=== PATIENT | male | born 1995 | race Caucasian/White ===

== ENCOUNTER 2018-11-19 02:37 | Emergency (ER) | payer OTHER, SELFPAY ==
[2018-11-19 02:45] VITALS: BP 145/87; PULSE 68; RESP 16; TEMP 36.4; O2SAT 96
--- NOTE | 2018-11-19 03:09 | ED_ITS ---
HPI - Headache General Chief Complaint: Headache Stated Complaint: not sleeping, hallucinating 1 week Time Seen by Provider: 11/19/18 02:45 Source: patient and family () Mode of arrival: ambulatory Limitations: no limitations History of Present Illness HPI Narrative: Patient is a 23-year-old male here with his for evaluation of headache and insomnia an auditory hallucinations. Appears that the symptoms have been going on for the past several days/week. Has been seen in 2 different emergency department per their report for similar symptoms. Has a follow-up artery scheduled with the mental health department [place] the [employer] but this is not for another week. He has seen his medical numerical control operator regarding his symptoms. He is currently on Celexa and Seroquel. He also has a prescription for trazodone as needed Ambien as needed. Patient states the am in does not help his symptoms. He reports that he had similar symptoms several months ago when he went several days without sleeping but those seem to have resolved. He states that his symptoms are that he is having a headache. He states he is hearing voices. He describes it as ?chatter ?no suicidal ideation. No homicidal ideation. Does not seem that the voices are saying anything specific however does state that he occasionally hears things about his father but does not expand on this. Two days ago he had the Seroquel increased to 50 mg by mouth. He states that he feels like he is hearing voices because he cannot sleep. Related Data Home Medications Medication Instructions Recorded Confirmed citalopram [Celexa] 40 mg PO DAILY 11/19/18 11/19/18 quetiapine 150 PO 11/19/18 trazodone 11/19/18 zolpidem [Ambien] mg PO BEDTIME PRN 11/19/18 Previous Rx's Medication Instructions Recorded lorazepam [Ativan] 1 mg PO BID-TID PRN #14 tab 11/19/18 Allergies Allergy/AdvReac Type Severity Reaction Status Date / Time No Known Drug Allergies Allergy Verified 11/19/18 03:01 Review of Systems Constitutional Denies fever(s), Reports headache(s) and Denies weakness ENT Ears, Nose, Mouth, and Throat: Reports headache(s) and Denies disequilibrium Cardiovascular Denies chest pain, Denies syncope and Denies dyspnea Respiratory Denies cough and Denies dyspnea Gastrointestinal Gastrointestinal: Denies abdominal pain, Denies nausea and Denies vomiting Musculoskeletal Denies myalgias and Denies arthralgias Integumentary/Breasts Denies lesions and Denies rash Neurologic Reports behavioral changes, Denies burning sensations, Denies confusion, Denies syncope, Reports headache(s), Denies tremor(s), Denies disequilibrium and Denies weakness Psychiatric Reports abnormal sleep pattern, Reports anxiety, Reports behavioral changes, Denies confusion, Reports auditory hallucinations, Denies paranoia, Denies visual hallucinations, Reports hallucinations, Denies tactile hallucinations, Denies homicidal ideation and Denies suicidal ideation Hematologic/Lymphatic Denies easy bleeding and Denies easy bruising [facility] Medical History Patient denies medical problems (Acute) Social History Smoking Status: Never smoker Social History Smoking Status: Never smoker Exam Initial Vital Signs Initial Vital Signs: Vital Signs Temperature 97.6 F 11/19/18 02:45 Pulse Rate 68 11/19/18 02:45 Respiratory Rate 16 11/19/18 02:45 Blood Pressure 145/87 H 11/19/18 02:45 Pulse Oximetry 96 11/19/18 02:45 Const General: cooperative, comfortable, well developed, well groomed, No acute dis tress and No in distress Orientation: alert, awake and oriented x3 Resp Effort & Inspection: normal respiratory effort Cardio Rate: regular rate Skin Lesions: no lesions Rashes: no rashes Neuro General: alert, awake and oriented x3 Speech: speech normal Motor: muscle tone normal throughout Sensory Exam: no sensory deficits noted Extrem General: normal to inspection and capillary refill normal Psych Appearance: grossly normal and well kempt Speech and Movement: restless Mood: anxious mood, not manic, not paranoid, No angry and No irritable mood Affect: indifferent Attitude: cooperative Thought Process: normal Thought Content: hallucinations auditory and suicidality Course Orders Ordered: Discontinued Medications Diphenhydramine HCl (Benadryl) 25 mg IV NOW ONE Stop: 11/19/18 03:10 Last Admin: 11/19/18 03:22 Dose: 25 mg Sodium Chloride (Normal Saline 0.9%) 1,000 mls @ 1,000 mls/hr IV BOLUS ONE Stop: 11/19/18 04:08 Last Infusion: 11/19/18 04:25 Dose: 0 mls/hr Admin: 11/19/18 03:22 Dose: 1,000 mls/hr Lorazepam (Ativan) 1 mg IV NOW ONE Stop: 11/19/18 03:52 Metoclopramide HCl (Reglan) 10 mg IV NOW ONE Stop: 11/19/18 03:10 Last Admin: 11/19/18 03:22 Dose: 10 mg Vital Signs - 8 hr 11/19/18 02:45 11/19/18 04:03 11/19/18 04:45 Temperature 97.6 F Pulse Rate 68 61 64 Respiratory Rate 16 18 Blood Pressure 145/87 H 104/65 Blood Pressure [Right Arm] 93/53 L Pulse Oximetry 96 95 98 MDM - Headache MDM Narrative Medical decision making narrative: Patient has no signs of toxic ingestions. His headache did seem to improve after the medications. He does seem much calmer any states that the voices are much less after the Ativan. Patient does not meet criteria for involuntary admission. I feel that he would not meet criteria for voluntary admission as well given the stability of his symptoms and the lack of suicidality or homicidality. Patient states that the Ambien does not work for him. I informed him that he should stop taking it. He seems pretty in different about the trazodone. Will send home with a short prescription for Ativan as that seemed to help his symptoms quite a bit here in the ER. Informed the patient that tomorrow he needs to contact his medical department and also the mental health [place] about moving his appointment up. I feel that the headaches were secondary to his insomnia and hallucinations. Low suspicion for meningitis or inter cranial haemorrhage. Will hold on further workup for now. Patient's is with him to take him home. We discussed return precautions and follow-up instructions. He expressed understanding and agreement plan. Patient has a GCS of 15 is alert and oriented x3 my opinion has capacity make decision Discharge Plan Departure Patient Disposition: Home Clinical Impression: Headache Qualifiers: Headache type: unspecified Headache chronicity pattern: unspecified pattern Intractability: not intractable Qualified Code(s): R51 - Headache Insomnia Qualifiers: Insomnia type: unspecified Qualified Code(s): G47.00 - Insomnia, unspecified Discharge Date/Time: 11/19/18 04:46 Interventions: ED Discharge Assessment Last Done: 11/19/18 04:45 Instructions: Insomnia (Alternative Therapy), Insomnia Activity Restrictions/Additional Instructions: I recommend you continue all of your medication except for the Ambien like we discussed. Tomorrow contact your flight surgeon and also the mental health [place] to discuss further workup. Return to the emergency department for any new or worsening symptoms Prescriptions: New lorazepam [Ativan] 1 mg tablet 1 mg PO BID-TID PRN (Reason: sleep) Qty: 14 RF: 0 No Action quetiapine 100 mg Tablet 150 PO RF: 0 citalopram [Celexa] 40 mg Tablet 40 mg PO DAILY RF: 0 zolpidem [Ambien] 5 mg Tablet PO BEDTIME PRN (Reason: insomnia) RF: 0 trazodone RF: 0
[2018-11-19] MEDS: diphenhydrAMINE 50 MG/ML VIAL 25 MG IV (03:22)
[2018-11-19] MEDS: SODIUM CHLORIDE 0.9% 1,000 ML 1000 ML IV (03:22)
[2018-11-19] MEDS: METOCLOPRAMIDE 10 MG/2 ML INJ IV (03:22)
[2018-11-19 04:03] VITALS: BP 93/53; PULSE 61; O2SAT 95
[2018-11-19 04:45] VITALS: BP 104/65; PULSE 64; RESP 18; O2SAT 98
== END 2018-11-19 04:46 | disposition home or self-care (01) ==
PROVIDERS: Emergency Provider Emergency Medicine
DX: G47.00 Insomnia, unspecified (principal); R51 Headache
CPT/HCPCS: 36591; 96361; 96374; 96375; 99283; 99284; J1200; J2765